=== PATIENT | male | born 1990 | race Caucasian/White ===

== ENCOUNTER 2020-01-26 16:41 | Emergency (ER) | payer OTHER ==
[~2020-01-26] VITALS: Ht 175.3 cm; Wt 57.0 kg
[2020-01-26] MEDS ORDERED: HYDROcodone/APAP 5/325 TABLET ONE (17:46)
[2020-01-26 17:49] VITALS: BP 130/83
--- NOTE | 2020-01-26 17:50 | NUR ---
PT MEDICATED PER EMAR.
[2020-01-26] MEDS ORDERED: HYDROcodone/APAP 5/325 TABLET PO ONE (18:30)
[2020-01-26] MEDS ORDERED: ONDANSETRON ODT 8 MG PO ONE (18:30)
[2020-01-26] MEDS ORDERED: ONDANSETRON 2MG/ML, 2ML ONE (18:30)
[2020-01-26] MEDS ORDERED: ONDANSETRON ODT 8 MG ONE (18:44)
== END 2020-01-26 19:19 | disposition home or self-care (01) ==
LOC: ED 19:00
DX: S42.021A Displaced fracture of shaft of right clavicle, initial encounter for closed fracture (principal); W19.XXXA Unspecified fall, initial encounter; Y93.89 Activity, other specified; Y92.828 Other wilderness area as the place of occurrence of the external cause; Y99.8 Other external cause status
CPT/HCPCS: 99283

== ENCOUNTER 2020-02-02 05:04 | Day surgery (SDC) | payer OTHER ==
[~2020-02-02] VITALS: Ht 175.3 cm; Wt 55.7 kg
[2020-02-02 06:06] VITALS: BP 120/82
[2020-02-02] MEDS ORDERED: EPINEPHRINE 1 MG/ML, 1ML ONE (06:12)
[2020-02-02] MEDS ORDERED: BUPIVACAINE/PF 0.5% ONE (06:12)
[2020-02-02] MEDS ORDERED: DOXY25TA18 PO (06:19)
[2020-02-02] MEDS ORDERED: MULT-658 PO (06:19)
[2020-02-02] MEDS ORDERED: FISH OIL PO (06:19)
[2020-02-02] MEDS ORDERED: HYDR-3652 PO (06:19)
[2020-02-02] MEDS ORDERED: MIDAZOLAM 1 MG/ML, 2ML ONE (06:26)
[2020-02-02] MEDS ORDERED: FENTANYL PF 250 MCG/5ML ONE (06:26)
[2020-02-02] MEDS ORDERED: CEFAZOLIN 1,000 MG ONE (06:28)
[2020-02-02] MEDS ORDERED: GLYCOPYRROLATE 0.2MG/1ML, 5ML ONE (06:28)
[2020-02-02] MEDS ORDERED: ROCURONIUM 10MG/ML,5ML ONE (06:28)
[2020-02-02] MEDS ORDERED: NEOSTIGMINE 1 MG/ML, 10ML ONE (06:28)
[2020-02-02] MEDS ORDERED: PROPOFOL 10 MG/ML, 20ML ONE (06:28)
[2020-02-02] MEDS ORDERED: LACTATED RINGERS 1,000 ML IV SCH (06:30)
[2020-02-02] MEDS ORDERED: CHLORHEXIDINE 15 ML UDC MM ONE (06:30)
[2020-02-02] MEDS ORDERED: morphine SULFATE 10 MG/ML, 1ML IVPush PRN (07:00)
[2020-02-02] MEDS ORDERED: ONDANSETRON 2MG/ML, 2ML IVPush PRN (07:00)
[2020-02-02] MEDS ORDERED: MEPERIDINE/PF 25MG/0.5ML IVPush PRN (07:00)
[2020-02-02] MEDS ORDERED: LABETALOL 5MG/ML, 20ML IV PRN (07:00)
[2020-02-02] MEDS ORDERED: hydrALAzine 20 MG/ML, 1ML IV PRN (07:00)
[2020-02-02] MEDS ORDERED: FENTANYL PF 100 MCG/2ML IV PRN (07:00)
[2020-02-02] MEDS ORDERED: HYDROmorphone 1 MG/ML, 1ML INJ IVPush PRN (07:00)
[2020-02-02] MEDS ORDERED: ACETAMINOPHEN 325 MG TABLET PO PRN (07:00)
[2020-02-02] MEDS ORDERED: NEOSPORIN OINT, 15GM ONE (07:17)
[2020-02-02] MEDS ORDERED: KETOROLAC 30 MG/1 ML ONE (07:17)
[2020-02-02] MEDS ORDERED: MEPERIDINE/PF 25MG/ML,1ML ONE (08:11)
[2020-02-02] MEDS ORDERED: OXYcodone 5 MG/5 ML ORAL.SOL UDC ONE (09:08)
[2020-02-02] MEDS ORDERED: ACETAMINOPHEN 650 MG/20.3 ML UDC ONE (09:08)
[2020-02-02] MEDS: OXYcodone 5 MG/5 ML ORAL.SOL UDC PO PRN ×2 (09:10→09:41)
== END 2020-02-02 10:10 | disposition home or self-care (01) ==
LOC: OUT 05:04
PROVIDERS: ATTEND Orthopaedic Surgery
DX: S42.021A Displaced fracture of shaft of right clavicle, initial encounter for closed fracture (principal); F17.200 Nicotine dependence, unspecified, uncomplicated; Z20.828 Contact with and (suspected) exposure to other viral communicable diseases; Z79.1 Long term (current) use of non-steroidal anti-inflammatories (NSAID); Z79.891 Long term (current) use of opiate analgesic; Z79.899 Other long term (current) drug therapy; Z88.8 Allergy status to other drugs, medicaments and biological substances; W00.0XXA Fall on same level due to ice and snow, initial encounter; Y93.23 Activity, snow (alpine) (downhill) skiing, snowboarding, sledding, tobogganing and snow tubing; Y92.89 Other specified places as the place of occurrence of the external cause; Y99.8 Other external cause status
CPT/HCPCS: 23515; 73000; 87635; C1713; J0171; J0690; J1885; J2175; J2250; J2704; J2710; J3010; J7120; 76000